=== PATIENT | female | born 1965 | race Caucasian/White ===

== ENCOUNTER → 2017-11-28 | Outpatient (CLI) | payer OTHER | LOC: BMCIMAGING 13:52 | PROVIDERS: ATTEND Internal Medicine | DX: Z12.31 Encounter for screening mammogram for malignant neoplasm of breast (principal); Z80.3 Family history of malignant neoplasm of breast ==

== ENCOUNTER 2018-02-27 15:44 | Emergency (ER) | payer OTHER ==
--- NOTE | 2018-02-27 15:59 | CPEKG ---
Heart Rate: 72 RR Interval: 833 P-R Interval: 144 QRSD Interval: 96 QT Interval: 376 QTC Interval: 412 P Gantt: 50 QRS Gantt: 65 T Wave Gantt: 19 EKG Severity - NORMAL ECG - EKG Impression: SINUS RHYTHM Electronically Signed By: Molina Florian 27-Feb-2018 16:27:44
--- NOTE | 2018-02-27 16:27 | EDPHY ---
H & P Time Seen by Provider: 02/27/18 16:27 HPI/ROS: CHIEF COMPLAINT: Chest pain HISTORY OF PRESENT ILLNESS: Patient got symptoms yesterday at 3:00 p.m. Around the house. She had sudden onset of pain in her left breast radiating to her left shoulder. Worse when she took a deep breath. It lasted until she went to sleep; when she woke up at 7:00 a.m. she was asymptomatic. At 11:00 a.m. It started again additionally radiate to her left neck. Left breast and left shoulder discomfort. Was a little bit more severe with deep breath again. At 3 :15 p.m. symptoms subsided and almost gone now. Not associated with coughing or fever, leg pain, orthopnea or positional component. REVIEW OF SYSTEMS: Eye: no change in vision ENT: no sore throat Cardiac: HPI no palpitations or syncope Pulmonary: HPI Abdomen: no vomiting, diarrhea, abdominal pain Musculoskeletal: no back pain or leg swelling Skin: no rash Neuro: no headache Constitutional: no fever : no urinary symptoms A comprehensive 10 point review of systems is otherwise negative aside from elements mentioned in the history of present illness. PAST MEDICAL HISTORY: Negative for diabetes or high cholesterol. She had 2 readings of systolic blood pressures in the 150s at the dentist last week and couple months ago at her primary care doctor but was never treated for hypertension. Family history: Maternal grandfather had MT at 56 otherwise negative for venous thromboembolism or premature coronary disease. No recent travel or immobilization. Social history: Denies tobacco or drugs General Appearance: Alert and conversant, cooperative. Eyes: No scleral icterus. ENT, Mouth: Normal mucous membranes. Respiratory: Normal respiratory effort, breath sounds equal, lungs are clear to auscultation. Cardiovascular: Regular rate and rhythm. Gastrointestinal: Abdomen is soft and non tender. Neurological: Alert, face symmetric, normal motor and sensory in extremities. Skin: Warm and dry, no rashes. Musculoskeletal: No peripheral edema. No calf tenderness. Psychiatric: Not agitated. Emergency Department course/MDM: Heart score 2, 1 for risk factor with family history and 1 for history. Low risk, muscular or inflammatory more likely than pulmonary embolism. I think her symptoms are be atypical for acute coronary syndrome or myocardial infarction. They are pleuritic. Initial EKG chest x-ray and troponin are negative. Plan D-dimer and repeat troponin at 3:00 a.m., discussed with patient and consented. 1727: d-dimer negative, PE unlikely. Pathway of 2nd troponin at 3:00 a.m. Discussed with the patient and consented to this course of action; 2nd troponin EKG negative, stable for discharge with outpatient follow-up at her primary care doctor's office. Smoking Status: Never smoked Constitutional: Initial Vital Signs Temperature (C) 36.6 C 02/27/18 15:44 Heart Rate 88 02/27/18 15:44 Respiratory Rate 20 02/27/18 15:44 Blood Pressure 174/122 H 02/27/18 15:44 O2 Sat (%) 96 02/27/18 15:44 O2 Delivery Mode Room Air Allergies/Adverse Reactions: No Known Allergies Allergy (Unverified 02/27/18 15:44) Home Medications: Medication Instructions Recorded NK [No Known Home Meds] 02/27/18 Medical Decision Making - Diagnostics EKG Interpretation: 12-lead EKG interpreted by me; official reading is in trace master. My interpretation is sinus rhythm rate 72 no ischemic changes. 1910: 12-lead EKG interpreted by me; official reading is in trace master. My interpretation is sinus rhythm no ischemic changes Imaging Results: Imaging Impressions Chest X-Ray 02/27/18 16:21 Impression: Indeterminant heart size. Consider obtaining a routine PA and lateral chest, when the patient is clinically able. Imaging: Discussed imaging studies w/ home security professional Radiologist, I viewed and interpreted images myself Differential Diagnosis: Differential diagnosis considered for chest pain including but not limited to myocardial ischemia, aortic dissection, pericarditis, pulmonary embolus, chest wall pain, pleural inflammation and pulmonary infectious causes. - Data Points Laboratory Results: Laboratory Results 02/27/18 15:57 02/27/18 15:57 02/27/18 02/27/18 02/27/18 19:06 16:01 15:57 WBC RBC Hgb Hct MCV MCH MCHC RDW Plt Count MPV Neut % (Auto) Lymph % (Auto) Thomas % (Auto) Eos % (Auto) Baso % (Auto) Nucleat RBC Rel Count Absolute Neuts (auto) Absolute Lymphs (auto) Absolute Monos (auto) Absolute Eos (auto) Absolute Basos (auto) Absolute Nucleated RBC Immature Gran % Immature Gran # D-Dimer < 0.27 ug/mLFEU ug/mLFEU (0.00-0.50) Sodium Potassium Chloride Carbon Dioxide Anion Gap BUN Creatinine Estimated GFR Glucose Calcium POC Troponin I 0.00 ng/mL ng/mL 0.00 ng/mL ng/mL (0.00-0.08) (0.00-0.08) 02/27/18 02/27/18 15:57 15:57 WBC 9.66 10^3/uL H 10^3/uL (3.80-9.50) RBC 4.42 10^6/uL 10^6/uL (4.18-5.33) Hgb 12.7 g/dL g/dL (12.6-16.3) Hct 39.2 % % (38.0-47.0) MCV 88.7 fL fL (81.5-99.8) MCH 28.7 pg pg (27.9-34.1) MCHC 32.4 g/dL g/dL (32.4-36.7) RDW 13.6 % % (11.5-15.2) Plt Count 267 10^3/uL 10^3/uL (150-400) MPV 12.0 fL H fL (8.7-11.7) Neut % (Auto) 65.2 % % (39.3-74.2) Lymph % (Auto) 27.2 % % (15.0-45.0) Thomas % (Auto) 6.4 % % (4.5-13.0) Eos % (Auto) 0.7 % % (0.6-7.6) Baso % (Auto) 0.3 % % (0.3-1.7) Nucleat RBC Rel Count 0.0 % % (0.0-0.2) Absolute Neuts (auto) 6.29 10^3/uL 10^3/uL (1.70-6.50) Absolute Lymphs (auto) 2.63 10^3/uL 10^3/uL (1.00-3.00) Absolute Monos (auto) 0.62 10^3/uL 10^3/uL (0.30-0.80) Absolute Eos (auto) 0.07 10^3/uL 10^3/uL (0.03-0.40) Absolute Basos (auto) 0.03 10^3/uL 10^3/uL (0.02-0.10) Absolute Nucleated RBC 0.00 10^3/uL 10^3/uL (0-0.01) Immature Gran % 0.2 % % (0.0-1.1) Immature Gran # 0.02 10^3/uL 10^3/uL (0.00-0.10) D-Dimer Sodium 136 mEq/L mEq/L (135-145) Potassium 3.7 mEq/L mEq/L (3.3-5.0) Chloride 104 mEq/L mEq/L (97-110) Carbon Dioxide 25 mEq/l mEq/l (22-31) Anion Gap 7 mEq/L L mEq/L (8-16) BUN 10 mg/dL mg/dL (7-23) Creatinine 0.6 mg/dL mg/dL (0.6-1.0) Estimated GFR > 60 Glucose 111 mg/dL H mg/dL (70-100) Calcium 9.8 mg/dL mg/dL (8.5-10.4) POC Troponin I Point of Care Test Results: Chemistry 02/27/18 02/27/18 19:06 16:01 POC Troponin I 0.00 ng/mL ng/mL 0.00 ng/mL ng/mL (0.00-0.08) (0.00-0.08) Departure - Departure Disposition: Home, Routine, Self-Care Clinical Impression: Chest pain Qualifiers: Chest pain type: unspecified Qualified Code(s): R07.9 - Chest pain, unspecified Instructions: Chest Pain (ED) Referrals: Vicente Starks MD [Primary Care Provider] - 2-3 days, call for appt.
[2018-02-27 16:45] LABS: PLATELET COUNT 267 10^3/uL (150-400)
--- NOTE | 2018-02-27 19:10 | CPEKG ---
Heart Rate: 66 RR Interval: 909 P-R Interval: 148 QRSD Interval: 98 QT Interval: 416 QTC Interval: 436 P Rombauer: 45 QRS Rombauer: 77 T Wave Rombauer: 18 EKG Severity - NORMAL ECG - EKG Impression: SINUS RHYTHM Electronically Signed By: Molina Florian 27-Feb-2018 19:10:18
[2018-02-27 19:24] VITALS: BP 165/78
== END 2018-02-27 19:24 | disposition home or self-care (01) ==
DX: R07.9 Chest pain, unspecified (principal)
CPT/HCPCS: 84484-PO

== ENCOUNTER → 2018-03-05 | Outpatient (CLI) | payer OTHER | LOC: BMCIMAGING 09:48 | PROVIDERS: ATTEND Internal Medicine | DX: I51.7 Cardiomegaly (principal); R03.0 Elevated blood-pressure reading, without diagnosis of hypertension ==